=== PATIENT | female | born 1980 | race Two or more races ===

== ENCOUNTER 2018-06-27 09:06 | Inpatient (IN) | payer BC ==
[2018-06-27] MEDS ORDERED: AMPICILLIN 2 GM/NS (PMX) 100 ML (09:22)
[2018-06-27] MEDS ORDERED: OXYTOCIN 30 UNITS/LR 500 ML IV ×3 (09:28→15:00)
[2018-06-27] MEDS ORDERED: LIDOCAINE 1% (MPF) 30 ML INJ INJ (09:30)
[2018-06-27] MEDS ORDERED: CARBOPROST 250 MCG INJ IM ×2 (09:30→15:00)
[2018-06-27] MEDS ORDERED: METHYLERGONOVINE 0.2 MG INJ IM ×2 (09:30→15:00)
[2018-06-27] MEDS ORDERED: MISOPROSTOL 200 MCG TAB PR ×2 (09:30→15:00)
[2018-06-27] MEDS ORDERED: BUTORPHANOL 2 MG INJ (09:31)
[2018-06-27 09:46] LABS: ADD MAN DIFF? NO
[2018-06-27 09:48] LABS: BASOPHIL # 0.1 10^3/ul (0.0-0.1); BASOPHILS % 0.3 % (0.0-2.0); EOSINOPHILS # 0.1 10^3/ul (0.0-0.5); EOSINOPHILS % 0.7 % (0.0-7.0); HEMOGLOBIN 11.6 g/dl (12.0-16.0); LYMPHOCYTES # 2.2 10^3/ul (0.8-2.9); LYMPHOCYTES % 14.1 % (15.0-51.0); MEAN CORPUSCULAR HEMOGLOBIN 30.9 pg (29.0-33.0); MEAN CORPUSCULAR HGB CONC 34.1 g/dl (32.0-37.0); MEAN CORPUSCULAR VOLUME 90.7 fl (82.0-101.0); MEAN PLATELET VOLUME 9.2 fl (7.4-10.4); MONOCYTE # 0.9 10^3/ul (0.3-0.9); MONOCYTES % 6.1 % (0.0-11.0); NEUTROPHIL # 12.1 10^3/ul (1.6-7.5); NEUTROPHILS % 77.8 % (39.0-77.0); PLATELET COUNT 294 10^3/UL (140-415); RED BLOOD COUNT 3.75 10^6/ul (4.20-5.40); RED CELL DISTRIBUTION WIDTH 14.4 % (11.5-14.5)
[2018-06-27 09:48] LABS: WHITE BLOOD COUNT 15.5 10^3/ul (4.8-10.8)
[2018-06-27] MEDS: LACTATED RINGER'S 1,000 ML IV ×2 (09:48→10:30)
[2018-06-27] MEDS: AMPICILLIN 2 GM/NS (PMX) 100 ML IV (09:49)
[2018-06-27] MEDS: BUTORPHANOL 2 MG INJ IV (09:49)
[2018-06-27] MEDS ORDERED: FENTAnyl 2MCG/ML-ROPIV 0.2% 100 ML (10:06)
[2018-06-27 10:07] LABS: INR 0.94; PROTIME 12.7 Sec (11.9-14.9)
[2018-06-27 10:35] LABS: HEPATITIS B SURFACE ANTIGEN NEGATIVE (NEGATIVE)
[2018-06-27] MEDS: OXYTOCIN 30 UNITS/LR 500 ML IV ×3 (11:50→14:38)
[2018-06-27] MEDS ORDERED: NALOXONE (0.4 MG/ML) INJ IV (13:00)
[2018-06-27] MEDS ORDERED: FENTAnyl 2MCG/ML-ROPIV 0.2% 100 ML BAG EPI (13:00)
[2018-06-27] MEDS ORDERED: AMPICILLIN 1 GM/NS (PMX) 50 ML IV (13:30)
[2018-06-27] MEDS ORDERED: SENNA/DOCUSATE NA (8.6MG/50MG) TAB PO (15:00)
[2018-06-27] MEDS ORDERED: OXYCODONE/ASPIRIN (4.88/325) TAB PO (15:00)
[2018-06-27] MEDS ORDERED: ZOLPIDEM 5 MG TAB PO (15:00)
[2018-06-27] MEDS ORDERED: NACL 0.9% 3 ML SYG IV (15:00)
[2018-06-27] MEDS: IBUPROFEN 600 MG TAB PO ×2 (17:44→23:42)
[2018-06-27] MEDS: LANOLIN 7 GM TUBE TOP (17:44)
[2018-06-27] MEDS: SENNA/DOCUSATE NA (8.6MG/50MG) TAB PO (20:21)
[2018-06-27 20:53] LABS: RAPID PLASMA REAGIN NONREACTIVE (NR)
[2018-06-28] MEDS: LACTATED RINGER'S 1,000 ML IV (01:19)
[2018-06-28] MEDS: IBUPROFEN 600 MG TAB PO ×3 (05:56→18:14)
[2018-06-28 08:05] LABS: ADD MAN DIFF? NO
[2018-06-28 08:13] LABS: BASOPHIL # 0.1 10^3/ul (0.0-0.1); BASOPHILS % 0.4 % (0.0-2.0); EOSINOPHILS # 0.2 10^3/ul (0.0-0.5); HEMOGLOBIN 10.8 g/dl (12.0-16.0); LYMPHOCYTES # 3.4 10^3/ul (0.8-2.9); LYMPHOCYTES % 18.6 % (15.0-51.0); MEAN CORPUSCULAR HEMOGLOBIN 31.1 pg (29.0-33.0); MEAN CORPUSCULAR HGB CONC 33.8 g/dl (32.0-37.0); MEAN CORPUSCULAR VOLUME 92.2 fl (82.0-101.0); MEAN PLATELET VOLUME 9.4 fl (7.4-10.4); MONOCYTE # 0.7 10^3/ul (0.3-0.9); MONOCYTES % 3.7 % (0.0-11.0); NEUTROPHIL # 13.7 10^3/ul (1.6-7.5); NEUTROPHILS % 75.2 % (39.0-77.0); PLATELET COUNT 312 10^3/UL (140-415); RED BLOOD COUNT 3.47 10^6/ul (4.20-5.40); RED CELL DISTRIBUTION WIDTH 14.6 % (11.5-14.5)
[2018-06-28 08:13] LABS: WHITE BLOOD COUNT 18.2 10^3/ul (4.8-10.8)
[2018-06-28] MEDS: SENNA/DOCUSATE NA (8.6MG/50MG) TAB PO ×2 (10:02→21:44)
[2018-06-29] MEDS: IBUPROFEN 600 MG TAB PO ×3 (00:36→11:59)
[2018-06-29] MEDS: DIPHTH/TET/ACEL PERTUSS (ADULT) 0.5 ML VIAL IM* (09:08)
[2018-06-29] MEDS: SENNA/DOCUSATE NA (8.6MG/50MG) TAB PO (09:16)
== END 2018-06-29 13:45 | disposition home or self-care (01) | DRG 807 ==
LOC: OBT 09:06 → L-D 09:06 → OBT 09:44 → L-D 09:10 → PP1 14:20
PROVIDERS: Obstetrics & Gynecology
PROC: 10E0XZZ Delivery of Products of Conception, External Approach (ICD-10-PCS; principal; 2018-06-27)
DX: O77.0 Labor and delivery complicated by meconium in amniotic fluid (principal); Z37.0 Single live birth; O70.9 Perineal laceration during delivery, unspecified; Z3A.38 38 weeks gestation of pregnancy
CPT/HCPCS: 62319; 76815; 85025; 85610; 85730; 86592; 86850; 86900; 86901; 87340; 90715; 99464